=== PATIENT | female | born 1940 | race Caucasian/White ===

== ENCOUNTER 2018-02-15 09:40 | Day surgery (SDC) | payer OTHER ==
--- NOTE | 2018-02-15 06:58 | EKG ---
Test Date: 2018-02-14 Test Time: 10:52:43 [employer] Consultant: JOHN MEASUREMENT RESULTS: Intervals: Rate: 65 ME: 126 QRSD: 76 QT: 422 QTc: 438 [place]: P: 8 ME: 126 QRS: -8 T: -5 INTERPRETIVE STATEMENTS: Normal sinus rhythm Normal ECG No previous ECG available for comparison Electronically Signed On 02-15-18 06:55:39 CDT by Donaldo Goldberg
[2018-02-15] MEDS ORDERED: Ringers Lactate 1,000 ML IV ONE (09:45)
[2018-02-15] MEDS ORDERED: BUPIVACA 0.5%/EPI 0.0005%/PF 10 ML VIAL ONE (10:50)
[2018-02-15] MEDS ORDERED: LIDOCAINE 1% W/EPI 1:100,000 MDV 50 ML VIAL ONE (10:50)
[2018-02-15] MEDS ORDERED: PROPOFOL 200 MG/20 ML VIAL IV ONE (11:13)
[2018-02-15] MEDS ORDERED: FENTANYL CITR 100 MCG/2 ML ONE (11:13)
[2018-02-15] MEDS ORDERED: MIDAZOLAM HCL 2 MG/2 ML INJ ONE (11:14)
[2018-02-15] MEDS ORDERED: GLYCOPYRROLATE 0.2 MG/ML SYR ONE (11:32)
[2018-02-15] MEDS ORDERED: KETOROLAC 30 MG/ML INJ ONE (13:36)
--- NOTE | 2018-02-15 13:45 | P.BOP ---
Preoperative diagnosis: BCC L nasal ala Postoperative diagnosis: same Primary procedure: excision with frozen section Secondary procedure: ear cartilage graft Other procedure(s): rotational skin flap (nasolabial) Body Piercer: NONE,NONE Estimated blood loss: 20ml Specimen: L nasal ala, 12 oclock margin, new 9 to 12 to 3 margin, final 9 to 12 lakia. Anesthesia: MAC Complications: None Fluids & blood products: Crystalloid 750ml Transferred to: Other (Day surgery) Condition: Good
--- NOTE | 2018-02-19 17:42 | OP ---
Date of Procedure: 02/15/2018 Surgeon: Sandy Josue MD Preoperative Diagnosis: Basal cell carcinoma. Postoperative Diagnosis: Basal cell carcinoma. Procedure: Wide local excision with frozen section for margins status, ear cartilage graft to the left nasal ala and local tissue rearrangement with rotational flap of the nose. Indication For Procedure: The patient presented with biopsy confirmed basal cell carcinoma of the left alar nasal crease. At the initial time of her evaluation, there was no gross disease and patient opted for observation. She presented approximately 2 months later with recurrence of crusting at the biopsy site and recommendation was made for formal excision. The patient deferred treatment until late January due to other health issues going on. Description Of Procedure: The patient was brought to the operating room. She was placed under monitored anesthesia care with IV sedation and local infiltration of the left nose, cheek, and ear. The face was prepped with Betadine and draped in a sterile fashion. The prior biopsy site appear well healed and a full-thickness skin excision around the area was made. The specimen was sent for frozen section and the 12 o'clock margin, which was the most anterior aspect was noted to be positive. A new 9 o'clock to 12 o'clock to 3 o'clock margin was excised with a true margin inked and this was sent for frozen section analysis. The 12 o'clock margin was persistently positive and a new 9 o'clock to 12 o'clock to 3 o'clock margin was excised. The true margin was inked and the 12 o'clock region was marked with a suture. This was again sent to pathology for frozen section. The 9 o'clock to 12 o'clock showed small persistent nests of basal cell carcinoma at the 12 o'clock to 9 o'clock, but the 12 o'clock to 3 o'clock was negative. Therefore, a final 12 o'clock to 9 o' clock margin was cut and sent to pathology and the true margin was finally negative. The defect was then carefully examined. The defect was approximately 2.2 x 2 cm with an irregular shape. The defect included the majority of the skin of the left nasal ala. A thin rim of skin along the rim was preserved. The tissue of the crease was absent as well as the lower portion of the nasal sidewall. A portion of the medial cheek was likewise comprised a portion of the defect. Underlying tissues were undermined while awaiting frozen section results. After careful consideration, decision was made to proceed with a cartilage graft to prevent incompetence of the external nasal valve. The left ear was exposed, prepped with Betadine, and injected with local anesthetic. An incision was made along the antihelical rim and the anterior skin of the seina was elevated off the conchal cartilage. The cartilage along the antihelical rim was incised, and the cartilage was elevated off the posterior conchal skin. Dissection of the conchal cartilage was then excised and set aside for later grafting. The anterior and posterior conchal skin were reapproximated and the anterior incision was closed in a simple running fashion with dissolvable sutures. Attention was then turned to the nasal defect. The conchal graft was positioned along the ala and secured in place with several resorbable sutures. Decision was made for a rotational and advancement of graft from the nasal labial fold. A long triangular flap along the nasal labial fold was designed, cut, and elevated. The flap was rotated and transposed over the defect and approximated into position with absorbable suture. A small Burow's triangle along the anterior superior aspect of the rotation was excised. The triangular tip was trimmed as excess tissue and the flap was secured and all incision closed in a running fashion with resorbable sutures. In attempt to recreate the nasal alar crease, a Vicryl suture was passed through the deep aspects of the tissue and anchored down to the piriform rim. The incisions were all noted to be hemostatic. The patient's face was cleaned from Betadine. Triple antibiotic ointment was applied to all suture lines and the patient was transported back to Day Surgery for recovery and discharge later today. ELMIRA Voice ID: [id number] Report ID: [id number] TEODORA
== END 2018-02-15 14:40 | disposition home or self-care (01) ==
LOC: OR 09:40
PROVIDERS: ATTEND Otolaryngology
PROC: 0HB1XZZ Excision of Face Skin, External Approach (ICD-10-PCS; 2018-02-15)
PROC: 0HB1XZZ Excision of Face Skin, External Approach (ICD-10-PCS; principal; 2018-02-15 11:45)
DX: C44.311 Basal cell carcinoma of skin of nose (principal); I10 Essential (primary) hypertension; E03.9 Hypothyroidism, unspecified; Z88.6 Allergy status to analgesic agent; Z82.3 Family history of stroke; Z83.3 Family history of diabetes mellitus
CPT/HCPCS: 14060; 15760; 88305 ×2; 88331 ×2; 88332; 93005; J2250; J3010

== ENCOUNTER 2019-07-14 14:46 | Emergency (ER) | payer OTHER ==
[2019-07-14 15:54] LABS: BUN Blood Urea Nitrogen 17 mg/dL (7-18); Bicarbonate 25 mmol/L (21-32); Glucose Level 106 mg/dL (74-106); Potassium 3.6 mmol/L (3.5-5.1); Sodium Level 137 mmol/L (136-145)
[2019-07-14 16:04] LABS: Absolute Lymphocytes (CBC) 0.2 K/uL (0.7-4.9); Hematocrit 22.1 % (36.0-45.0); Lymphocytes % 94.4 % (15.3-44.8); MPV 10.9 fL (7.6-11.3)
--- NOTE | 2019-07-14 16:06 | RAD REPORT ---
EXAM DESCRIPTION: RAD - Chest Single View - 07/14/2019 3:35 pm CLINICAL HISTORY: Headache, nausea, hypertension COMPARISON: None. TECHNIQUE: AP portable chest image was obtained 1530 hour . FINDINGS: Is no focal mass or consolidation. Interstitial markings are mildly prominent with the bas shannan unknown. Heart and vasculature are normal. No measurable pleural effusion and no pneumothorax. No acute bony abnormality seen. No acute aortic findings suspected. IMPRESSION: No focal lung parenchymal process. Mild prominence of the interstitial pattern noted. This could be baseline or mild interstitial edema/ infiltrate.
[2019-07-14 16:07] LABS: Platelet Estimate DECR; Platelets, Giant PRESENT; Urine White Blood Cell Casts OK
[2019-07-14 16:08] LABS: Anisocytosis 1+; Blood Morphology Comment NOTED (NOT SEEN); Hypochromasia 2+
--- NOTE | 2019-07-14 16:16 | ER ---
Nurse's Notes [facility] Name: Ting Rivera Age: 79 yrs Sex: Female : 1940 Arrival Date: 07/14/2019 Time: 14:48 Bed 19 Private MD: Diagnosis: Pancytopenia;Myelodysplastic syndrome, unspecified Presentation: 07/14 14:51 Presenting complaint: Patient states: Cancer center sent pt here due to Hgb of 5.6. Pt jl7 reports MCGRAW and nausea x 4 days. Transition of care: patient was not received from another setting of care. Onset of symptoms was July 14, 2019. Risk Assessment: Do you want to hurt yourself or someone else? Patient reports no desire to harm self or others. Initial Sepsis Screen: Does the patient meet any 2 criteria? No. Patient's initial sepsis screen is negative. Does the patient have a suspected source of infection? No. Patient's initial sepsis screen is negative. Care prior to arrival: None. 14:51 Method Of Arrival: Wheelchair [facility] 14:51 Acuity: NELSON 2 jl7 Triage Assessment: 15:09 General: Appears in no apparent distress. comfortable, obese, Behavior is cooperative, bp appropriate for age, anxious. Pain: Denies pain. EENT: No deficits noted. Neuro: No deficits noted. Cardiovascular: No deficits noted. Respiratory: No deficits noted. GI: No signs and/or symptoms were reported involving the gastrointestinal system. : No signs and/or symptoms were reported regarding the genitourinary system. Derm: Skin is pale. Musculoskeletal: No deficits noted. Historical: - Allergies: 14:53 Sulfa (Sulfonamide Antibiotics); jl7 - Home Meds: 14:53 Atenolol Oral [Active]; Synthroid Oral [Active]; jl7 - PMHx: 14:53 Hypertension; Hypothyroidism; MDS; jl7 - Immunization history:: Adult Immunizations unknown. - Social history:: Smoking status: Patient/guardian denies using tobacco. - Ebola Screening: : No symptoms or risks identified at this time. Screenin:30 Abuse screen: Denies threats or abuse. Denies injuries from another. Nutritional bp screening: No deficits noted. Tuberculosis screening: No symptoms or risk factors identified. Fall Risk None identified. Assessment: 15:10 General: SEE TRIAGE NOTE. bp 15:48 Reassessment: ALL CURRENT ORDERS COMPLETED, PT ONCOLOGIST RECOMMENDATION PENDING bp RESULTS. 16:50 Reassessment: REPORT TO [facility]. TRANSPORT PENDING. bp 17:42 Reassessment: PT JUANITO WITH EMS. bp Vital Signs: 14:53 BP 125 / 55; Pulse 109; Resp 15 S; Temp 99.8(O); Pulse Ox 100% on R/A; Pain 6/10; jl7 15:47 BP 131 / 61; Pulse 107; Resp 20; Pulse Ox 100% ; bp 16:30 BP 106 / 52; Pulse 101; Resp 17; Pulse Ox 97% ; bp 17:30 BP 99 / 59; Pulse 109; Resp 16; Temp 99; Pulse Ox 100% ; bp ED Course: 14:48 Patient arrived in ED. mr 14:52 Triage completed. jl7 14:53 Arm band placed on right wrist. jl7 14:55 Gayatri Teran FNP-C is [facility]. kb 14:55 Qamar Smith MD is Attending Physician. kb 15:09 Johnson Pate, RN is Primary Nurse. bp 15:30 Patient has correct armband on for positive identification. Bed in low position. Call bp light in reach. Side rails up X2. 15:30 Inserted saline lock: 20 gauge in right antecubital area, using aseptic technique. bp Blood collected. 15:36 Chest Single View In Process Unspecified. EDMS 15:54 Urine collected: clean catch specimen, sofie colored. 3 17:44 No provider procedures requiring assistance completed. Patient transferred, IV remains bp in place. Administered Medications: 17:42 Drug: Tylenol 1000 mg Route: PO; bp 17:44 Follow up: Response: Medication administered at discharge. bp Outcome: 16:16 ER care complete, transfer ordered by . kb 17:44 [facility], Transfer form completed. bp 17:44 Condition: stable 17:44 Instructed on the need for transfer. 17:45 Patient left the ED. bp Signatures: Dispatcher [employer] EDMS Gayatri Teran FNP-C FNP-Ckb Ting Stevens Gigi Swain RN RN 7 Ernestina Josue 3 Johnson Pate, RN RN bp Corrections: (The following items were deleted from the chart) 14:55 14:51 Presenting complaint: Patient states: Cancer center sent pt here due to Hgb of jl7 5.6 jl7
--- NOTE | 2019-07-14 16:16 | EDPHYS ---
Physician Documentation [facility] Name: Ting Rivera Age: 79 yrs Sex: Female : 1940 Arrival Date: 07/14/2019 Time: 14:48 Bed 19 Private MD: ED Physician Qamar Smith HPI: 07/14 15:06 This 79 yrs old Female presents to ER via Wheelchair with complaints of kb Abnormal Lab Results. 15:08 The patient presents with generalized weakness. Onset: The symptoms/episode kb began/occurred 3 day(s) ago. Context: occurred at home, just prior to the episode the patient experienced no apparent symptoms. Modifying factors: The symptoms are alleviated by nothing, the symptoms are aggravated by nothing. Associated signs and symptoms: The patient has no apparent associated signs or symptoms. Severity of symptoms: At their worst the symptoms were moderate in the emergency department the symptoms are unchanged. Patient's baseline: Neuro: alert and fully oriented, Motor: no deficits, Ambulation: walks without assistance, Speech: normal. The patient has not experienced similar symptoms in the past. The patient has been recently seen by a physician: Cancer center sent her here for blood and platelet transfusion. Pt reports she was diagnosed with MDS around the of last month. Was at [facility] for 3 weeks, got 10 chemo treatments and multiple transfusions. States they moved her treatments to because it was closer to her home, but her first appt wasn't until today. States "I started feeling bad, weak, 3 days ago. I knew I needed some blood or platelets because they were giving them to me almost every day at [facility] and I got out of there over a week ago." Pt denies cough, congestion, fever, chills, or any other symptoms of infection. . Historical: - Allergies: 14:53 Sulfa (Sulfonamide Antibiotics); jl7 - Home Meds: 14:53 Atenolol Oral [Active]; Synthroid Oral [Active]; jl7 - PMHx: 14:53 Hypertension; Hypothyroidism; MDS; jl7 - Immunization history:: Adult Immunizations unknown. - Social history:: Smoking status: Patient/guardian denies using tobacco. - Ebola Screening: : No symptoms or risks identified at this time. ROS: 15:06 Constitutional: Negative for fever, chills, and weight loss, Cardiovascular: Negative kb for chest pain, palpitations, and edema, Respiratory: Negative for shortness of breath, cough, wheezing, and pleuritic chest pain, Abdomen/GI: Negative for abdominal pain, nausea, vomiting, diarrhea, and constipation, Back: Negative for injury and pain, MS/Extremity: Negative for injury and deformity, Skin: Negative for injury, rash, and discoloration. 15:06 Constitutional: Positive for fatigue. 15:06 Neuro: Positive for weakness. Exam: 15:07 Constitutional: This is a well developed, well nourished patient who is awake, alert, kb and in no acute distress. Head/Face: Normocephalic, atraumatic. ENT: Nares patent. No nasal discharge, no septal abnormalities noted. Tympanic membranes are normal and external auditory canals are clear. Oropharynx with no redness, swelling, or masses, exudates, or evidence of obstruction, uvula midline. Mucous membranes moist. Neck: Trachea midline, no thyromegaly or masses palpated, and no cervical lymphadenopathy. Supple, full range of motion without nuchal rigidity, or vertebral point tenderness. No Meningismus. Chest/axilla: Normal chest wall appearance and motion. Nontender with no deformity. No lesions are appreciated. Cardiovascular: Regular rate and rhythm with a normal S1 and S2. No gallops, murmurs, or rubs. Normal PMI, no JVD. No pulse deficits. Respiratory: Lungs have equal breath sounds bilaterally, clear to auscultation and percussion. No rales, rhonchi or wheezes noted. No increased work of breathing, no retractions or nasal flaring. Abdomen/GI: Soft, non-tender, with normal bowel sounds. No distension or tympany. No guarding or rebound. No evidence of tenderness throughout. Back: No spinal tenderness. No costovertebral tenderness. Full range of motion. MS/ Extremity: Pulses equal, no cyanosis. Neurovascular intact. Full, normal range of motion. Neuro: Awake and alert, GCS 15, oriented to person, place, time, and situation. Cranial nerves II-XII grossly intact. Motor strength 5/5 in all extremities. Sensory grossly intact. Cerebellar exam normal. Normal gait. 15:07 Skin: Appearance: Color: pale. Vital Signs: 14:53 BP 125 / 55; Pulse 109; Resp 15 S; Temp 99.8(O); Pulse Ox 100% on R/A; Pain 6/10; jl7 15:47 BP 131 / 61; Pulse 107; Resp 20; Pulse Ox 100% ; bp 16:30 BP 106 / 52; Pulse 101; Resp 17; Pulse Ox 97% ; bp 17:30 BP 99 / 59; Pulse 109; Resp 16; Temp 99; Pulse Ox 100% ; bp MDM: 14:56 Patient medically screened. 15:06 Data reviewed: vital signs, nurses notes. Data interpreted: Pulse oximetry: on room air kb is 100 %. Interpretation: normal. 15:24 ED course: Dr Dillard spoke with Dr Valdes (fellow) and Darwin (attending) at [facility]. They would like pt transferred back to [facility] for further testing since her levels have not improved. Transfer initiated. 16:14 Counseling: I had a detailed discussion with the patient and/or guardian regarding: the historical points, exam findings, and any diagnostic results supporting the discharge/admit diagnosis, lab results, radiology results, the need to transfer to another facility, for higher level of care, [facility] does not immediately have the required specialist. ED course: Dr Harrison, hospitalist at [facility], accepts pt for transfer. 07/14 15:04 Order name: CBC with Diff 07/14 15:04 Order name: Basic Metabolic Panel; Complete Time: 15:55 kb 07/14 15:04 Order name: Blood Culture Adult (2) 07/14 15:04 Order name: Type And Screen; Complete Time: 16:53 kb 07/14 16:08 Order name: CBC Smear Scan EDMS 07/14 15:04 Order name: Urine Dipstick-Ancillary (obtain specimen); Complete Time: 15:46 kb 07/14 15:04 Order name: IV Start; Complete Time: 15:30 kb 07/14 15:22 Order name: Diet Regular; Complete Time: 15:22 kb 07/14 15:36 Order name: Chest Single View; Complete Time: 16:09 EDMS 07/14 15:58 Order name: Labs - recollect needed; Complete Time: 16:01 bd Administered Medications: 17:42 Drug: Tylenol 1000 mg Route: PO; bp 17:44 Follow up: Response: Medication administered at discharge. bp Disposition: 18:26 Co-signature as Attending Physician, Qamar Smith MD. rn Disposition: 07/14/19 16:16 Transfer ordered to [facility]. Diagnosis are Pancytopenia, Myelodysplastic syndrome, unspecified. - Reason for transfer: Higher level of care. - Accepting physician is Hunter. - Condition is Stable. - Problem is new. - Symptoms are unchanged. Signatures: Dispatcher [employer] [facility] Gayatri Teran, SUB MASTER-C SUB MASTER-Ckb Guerita Bourne Roman, MD MD rn Gigi Swain RN RN jl7 Johnson Pate, CRESENICO RN bp Corrections: (The following items were deleted from the chart) 15:35 15:05 Chest Pa And Lat (2 Views)+[email or web address] ordered. [facility] 17:45 16:16 07/14/2019 16:16 Transfer ordered to [facility]. bp Diagnosis is Pancytopenia; Myelodysplastic syndrome, unspecified. Reason for transfer: Higher level of care. Accepting physician is Hunter. Condition is Stable. Problem is new. Symptoms are unchanged. kb
[2019-07-14] MEDS ORDERED: ACETAMINOPHEN 500 MG TAB ONE (17:38)
[2019-07-14 18:05] VITALS: BP 99/59; TEMP 99; O2SAT 100
== END 2019-07-14 17:45 | disposition short-term general hospital (02) ==
LOC: ER 14:46
DX: D61.818 Other pancytopenia (principal); D46.9 Myelodysplastic syndrome, unspecified; I10 Essential (primary) hypertension; E03.9 Hypothyroidism, unspecified; Z88.2 Allergy status to sulfonamides
CPT/HCPCS: 36415; 71045; 80048; 85025; 86850; 86900; 86901; 87040; 99285